=== PATIENT | female | born 2005 | race African-American/Black ===

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

== ENCOUNTER 2023-01-06 21:41 | Emergency (ER) | payer MEDICAID ==
[~2023-01-06] VITALS: Ht 160 cm; Wt 110.5 kg
[2023-01-06 22:58] LABS: BASOPHILS % 0.3 % (0.0-2.0); EOSINOPHILS % 1.1 % (0.0-5.0); HEMATOCRIT. 39.3 % (36.0-48.0); LYMPHOCYTES % 31.4 % (20.0-50.0); MEAN CORPUSCULAR HEMOGLOBIN 25.5 pg (28.0-32.0); MEAN CORPUSCULAR VOLUME 77.3 fL (81.0-99.0); MEAN PLATELET VOLUME 8.3 fl (7.4-10.4); MONOCYTES % 6.1 % (2.0-8.0); NEUTROPHILS % 61.1 % (40.0-76.0); PLATELET 381 x1000/uL (130-400); RED BLOOD CELL COUNT 5.09 mill/uL (4.2-5.4); RED CELL DISTRIBUTION WIDTH 15.2 % (11.6-14.6)
[2023-01-06 23:07] LABS: CHLORIDE 98 mEq/L (98-107)
[2023-01-07 00:21] VITALS: BP 122/72
== END 2023-01-07 00:23 | disposition home or self-care (01) ==
LOC: ER 21:41
DX: R07.89 Other chest pain (principal); E11.65 Type 2 diabetes mellitus with hyperglycemia; K21.9 Gastro-esophageal reflux disease without esophagitis; F41.9 Anxiety disorder, unspecified
CPT/HCPCS: 36415; 71045; 80053; 81025; 84484; 85025; 93005; 99285

== ENCOUNTER 2023-02-05 18:13 | Emergency (ER) | payer MEDICAID ==
[~2023-02-05] VITALS: Ht 160 cm; Wt 100.0 kg
[2023-02-05 18:19] VITALS: BP 128/72
== END 2023-02-05 22:30 | disposition left against medical advice (07) ==
LOC: ER 18:13
DX: Z53.21 Procedure and treatment not carried out due to patient leaving prior to being seen by health care provider (principal)
CPT/HCPCS: 99281

== ENCOUNTER 2023-03-22 15:14 | Emergency (ER) | payer MEDICAID ==
[~2023-03-22] VITALS: Ht 167.6 cm; Wt 91.0 kg
[2023-03-22 15:19] VITALS: O2SAT 99
[2023-03-22 15:45] LABS: BASOPHILS % 0.4 % (0.0-2.0); HEMATOCRIT. 37.7 % (36.0-48.0); HEMOGLOBIN. 12.5 g/dL (12.0-16.0); LYMPHOCYTES % 22.3 % (20.0-50.0); MEAN CORPUSCULAR VOLUME 78.7 fL (81.0-99.0); MEAN PLATELET VOLUME 8.3 fl (7.4-10.4); MONOCYTES % 5.8 % (2.0-8.0); NEUTROPHILS % 70.5 % (40.0-76.0); PLATELET 331 x1000/uL (130-400); RED CELL DISTRIBUTION WIDTH 14.3 % (11.6-14.6)
[2023-03-22 15:58] LABS: CHLORIDE 105 mEq/L (98-107)
[2023-03-22 16:13] LABS: BETA HYDROXYBUTYRATE 0.6 mMol/L (0.0-0.3); ETHANOL BLOOD < 10 mg/dL (-10)
[2023-03-22 16:24] LABS: HCG SCREEN NEGATIVE
[2023-03-22 17:43] VITALS: BP 134/86; PULSE 86; RESP 18; TEMP 98.1
== END 2023-03-22 17:43 | disposition home or self-care (01) ==
LOC: ER 15:14
DX: E11.65 Type 2 diabetes mellitus with hyperglycemia (principal); F41.9 Anxiety disorder, unspecified; F32.9 Major depressive disorder, single episode, unspecified; K21.9 Gastro-esophageal reflux disease without esophagitis; F12.10 Cannabis abuse, uncomplicated
CPT/HCPCS: 36415; 80053; 80307; 80320; 80329; 82010; 84703; 85025; 99283; G0480